=== PATIENT | female | born 1995 | race Two or more races ===

== ENCOUNTER 2016-10-26 16:20 | Emergency (ER) | payer OTHER ==
[2016-10-26 16:32] VITALS: BP 116/75; PULSE 70; TEMP 98.7; BMI 32.4
[2016-10-26 17:21] LABS: URINE APPEARANCE Clear; URINE BILIRUBIN Negative (NEGATIVE); URINE GLUCOSE (UA) Negative (NEGATIVE); URINE KETONE Negative (NEGATIVE); URINE LEUK ESTERASE Negative (NEGATIVE); URINE NITRITE Negative (NEGATIVE); URINE PROTEIN Negative (NEGATIVE); URINE UROBILINOGEN 0.2 E.U/dl (0.2-1.0)
--- NOTE | 2016-10-26 17:21 | PDOC ---
History of Present Illness - General History Source: Patient Exam Limitations: No Limitations - History of Present Illness Initial Comments: 10/26/16 17:22 The patient is a 21 year old female, with no significant past medical history, who presents today complaining of 10 days of intermittent right sided flank pain , nausea, and diarrhea. Approximately 3 or 4 days ago, the pain started to radiate from the right flank to the RLQ. She describes the pain as sharp, cramping, and occurs when taking a deep breath.She experienced 3 episodes of diarrhea since yesterday and multiple episodes of loose stool since the pain began. The patient was seen by her PCP yesterday for the pain and was told to come to the emergency room. The pain resolved and the patient decided to stay home until approximately 1 hour ago when the pain returned. She also reports frequent urination. Her LMP started on 10/24/16 and her last [employer] check up was on September 21. No fever, chills, nausea, vomiting. No dysuria, hematuria. No chest pain, SOB. No vaginal discharge. Allergies: none reported PCP- Dr. Annabel Sutherland <Judy Delgado - Last Filed: 10/26/16 18:29> <Rakesh Esparza - Last Filed: 10/26/16 19:15> - General Chief Complaint: Pain Stated Complaint: RLQ ABD PAIN, DIARRHEA, NAUSEA Time Seen by Provider: 10/26/16 16:30 Past History <Judy Delgado - Last Filed: 10/26/16 18:29> - Past Medical History Other medical history: DENIES - Reproductive History Is Patient Now?: No - Psycho/Social/Smoking Cessation Hx Anxiety: No Suicidal Ideation: No Smoking History: Never smoked Have you smoked in the past 12 months: No Information on smoking cessation initiated: No Hx Alcohol Use: No Drug/Substance Use Hx: No Substance Use Type: None <Rakesh Esparza - Last Filed: 10/26/16 19:15> - Past Medical History Allergies/Adverse Reactions: Allergies Allergy/AdvReac Type Severity Reaction Status Date / Time No Known Allergies Allergy Verified 11/29/15 23:16 Home Medications: Ambulatory Orders Norgestimate-Ethinyl Estradiol [Trinessa Lo Tablet] 1 each PO ASDIR 10/26/16 Review of Systems - Review of Systems Comments:: 10/26/16 17:22 CONSTITUTIONAL: Absent: Fever, Chills, Diaphoresis, Generalized Weakness, Malaise, Loss of Appetite HEENT: Absent: Rhinorrhea, Nasal Congestion, Throat Pain, Throat Swelling, Difficulty Swallowing, Mouth Swelling, Ear Pain, Eye Pain, Visual Changes CARDIOVASCULAR: Absent: Chest Pain, Syncope, Palpitations, Irregular Heart Rate, Lightheadedness , Peripheral Edema GASTROINTESTINAL: Present: RLQ pain, nausea, diarrhea. Absent: Abdominal Distension, Vomiting, Constipation, Melena, Hematochezia GENITOURINARY: Present: frequency, right sided flank pain. Absent: Dysuria, Urgency, Hesitancy, Genital Pain MUSCULOSKELETAL: Absent: Myalgia, Arthralgia, Joint Swelling, Back pain, Neck Pain SKIN: Absent: Rash, Itching, Pallor <Judy Delgado - Last Filed: 10/26/16 18:29> *Physical Exam - Vital Signs Last Vital Signs Temp Pulse Resp BP Pulse Ox 98.7 F 70 18 116/75 100 10/26/16 16:20 10/26/16 16:20 10/26/16 16:20 10/26/16 16:20 10/26/16 16:20 - Physical Exam Comments: 10/26/16 17:23 GENERAL: [The patient is awake, alert, and fully oriented, in no acute distress. ] HEAD: [Normal with no signs of trauma.] EYES: [Pupils equal, round and reactive to light, extraocular movements intact, sclera anicteric, conjunctiva clear.] LUNGS: [Breath sounds equal, clear to auscultation bilaterally. No wheezes, and no crackles.] ABDOMEN: [+mild RUQ tenderness with negative [place] sign. Mild focal RLQ tenderness. No guarding and No rebound. Normoactive bowel sounds. No masses.] BACK: [+mild right flank tenderness.] EXTREMITIES: [Normal range of motion, no edema. Sensation intact. Circulation intact.] NEUROLOGICAL: [Normal speech, normal gait.] PSYCH: [Normal mood, normal affect.] SKIN: [Warm, Dry, normal turgor, no rashes or lesions noted.] <Judy Delgado - Last Filed: 10/26/16 18:29> - Vital Signs Last Vital Signs Temp Pulse Resp BP Pulse Ox 98.7 F 70 18 116/75 100 10/26/16 16:20 10/26/16 16:20 10/26/16 16:20 10/26/16 16:20 10/26/16 16:20 <Rakesh Esparza - Last Filed: 10/26/16 19:15> ED Treatment Course - LABORATORY CBC & Chemistry Diagram: 10/26/16 17:15 10/26/16 17:15 - RADIOLOGY Radiograph Interpretation: 10/26/16 18:29 EXAM#: TYPE/EXAM: RESULT: [id number] US/ABDOMEN US -LIMITED RIGHT UPPER QUADRANT ABDOMEN ULTRASOUND Clinical information: right upper quadrant and flank pain The gallbladder appears mildly contracted probably on a physiologic basis. No definite gallbladder calculus is noted. Evaluation in this regard is mildly limited due to mild gallbladder contraction. No gallbladder wall edema or pericholecystic fluid is identified. The common bile duct diameter appears within normal limits measuring 0.4 cm. The liver and partially visualized pancreas and no sonographic abnormality. There is no right-sided hydronephrosis. A 3 mm echogenic focus is seen within the right kidney at the midpole level without associated distal acoustical shadowing. This focus could conceivably represent a nonobstructing calculus. No free intraperitoneal fluid is noted. IMPRESSION: The gallbladder is mildly contracted probably on a physiologic basis and less likely due to chronic cholecystitis. If clinically indicated correlate with follow-up outpatient sonography. No definite gallbladder calculus is identified allowing for the described mild gallbladder contraction. There is no definite biliary tract dilatation. An equivocal nonobstructing 3 mm right renal calculus is noted. Reported By: Sincere Barrios MD 10/26/16 1815 <Judy Delgado - Last Filed: 10/26/16 18:29> - LABORATORY CBC & Chemistry Diagram: 10/26/16 17:15 10/26/16 17:15 - RADIOLOGY Radiology Studies Ordered: Category Date Time Status ABDOMEN US [US] Stat Ultrasound 10/26/16 17:09 Ordered <Rakesh Esparza - Last Filed: 10/26/16 19:15> Medical Decision Making - Medical Decision Making 10/26/16 19:12 Patient is a 21-year-old female who presents complaining of intermittent right flank pain and right abdominal pain for 10 days. She saw her doctor yesterday and was advised to come to the ED, but the pain resolved so she went home. Today the pain came back again. There is no nausea or vomiting. There is no fever or chills. There is no vaginal discharge. There is no change in bowel movements. On examination, there is mild right flank tenderness, mild right upper quadrant and mild right lower quadrant tenderness. There is no guarding or rebound tenderness. Patient declined pain medication because the symptoms are too mild. Laboratory Results - last 24 hr 10/26/16 10/26/16 10/26/16 17:00 17:00 17:15 WBC 6.9 RBC 4.44 Hgb 13.2 Hct 38.6 MCV 87.1 MCHC 34.1 RDW 12.0 Plt Count 318 MPV 8.1 Neutrophils % 58.4 Lymphocytes % 29.8 Monocytes % 7.7 Eosinophils % 1.3 Basophils % 2.8 H Sodium Potassium Chloride Carbon Dioxide Anion Gap BUN Creatinine Creat Clearance w eGFR Random Glucose Calcium Total Bilirubin AST ALT Alkaline Phosphatase Total Protein Albumin Lipase Urine Color Yellow Urine Appearance Clear Urine pH 6.0 Ur Specific [place] 1.025 Urine Protein Negative Urine Glucose (UA) Negative Urine Ketones Negative Urine Blood 1+ H Urine Nitrite Negative Urine Bilirubin Negative Urine Urobilinogen 0.2 e.u/dl Ur Leukocyte Esterase Negative Urine HCG, Qual Negative 10/26/16 17:15 WBC RBC Hgb Hct MCV MCHC RDW Plt Count MPV Neutrophils % Lymphocytes % Monocytes % Eosinophils % Basophils % Sodium 134 L Potassium 3.9 Chloride 103 Carbon Dioxide 26 Anion Gap 5 L BUN 10 Creatinine 0.5 L Creat Clearance w eGFR > 60 Random Glucose 92 Calcium 9.0 Total Bilirubin 0.6 AST 14 ALT 10 Alkaline Phosphatase 59 Total Protein 6.8 Albumin 3.8 Lipase 36 Urine Color Urine Appearance Urine pH Ur Specific [place] Urine Protein Urine Glucose (UA) Urine Ketones Urine Blood Urine Nitrite Urine Bilirubin Urine Urobilinogen Ur Leukocyte Esterase Urine HCG, Qual Urinalysis is positive for blood, however, the patient had her period recently. The white blood cell count is normal. The ultrasound of the right upper quadrant shows no gallstones. There is a possible stone or calcification in the right kidney. Patient will have CT scan of the abdomen and pelvis to evaluate for renal colic. Appendicitis is highly unlikely given the intermittent nature of the pain, despite her right lower quadrant tenderness. Patient endorsed to Dr. Steve Levy at change of shift, with CT scan results pending. <Rakesh Esparza - Last Filed: 10/26/16 19:15> *DC/Admit/Observation/Transfer - Attestations Scribe Attestion: 10/26/16 17:23 Documentation prepared by OLI Ann, acting as medical laboratory specialist for Rakesh Esparza MD. <Judy Delgado - Last Filed: 10/26/16 18:29> <Rakesh Esparza - Last Filed: 10/26/16 19:15> Diagnosis at time of Disposition: Right flank pain - Discharge Dispostion Condition at time of disposition: Stable - Referrals Referrals: Annabel Sutherland [Primary Care Provider] -
[2016-10-26 17:24] LABS: URINE COLOR YELLOW
[2016-10-26 17:36] LABS: BASOPHIL 2.8 % (0-2.0); EOSINOPHIL 1.3 % (0-4.5); MCH 29.7 pg (25.7-33.7); MCHC 34.1 g/dl (32.0-36.0); MEAN CELL VOLUME 87.1 fl (80-96); MEAN PLT VOLUME 8.1 fl (7.5-11.1); NEUTROPHILS 58.4 % (42.8-82.8); PLATELET COUNT 318 K/MM3 (134-434); WHITE BLOOD COUNT 6.9 K/mm3 (4.0-10.0)
[2016-10-26 17:43] LABS: ALBUMIN 3.8 g/dl (3.5-5.0); ALK PHOS 59 U/L (32-92); ANION GAP 5 (8-16); BILIRUBIN,TOTAL 0.6 mg/dl (0.2-1.0); CO2 26 mmol/L (22-28); CREATININE 0.5 mg/dl (0.6-1.3); GLUCOSE,RANDOM 92 mg/dl (74-106); SGOT/AST 14 U/L (10-42); SGPT/ALT 10 U/L (10-40); TOT PROT 6.8 g/dl (6.4-8.3)
[2016-10-26 18:24] LABS: URINE BLOOD 1+ (NEGATIVE)
--- NOTE | 2016-10-26 19:28 | PDOC ---
*Physical Exam - Vital Signs Last Vital Signs Temp Pulse Resp BP Pulse Ox 98.7 F 70 18 116/75 100 10/26/16 16:20 10/26/16 16:20 10/26/16 16:20 10/26/16 16:20 10/26/16 16:20 <Judy Delgado - Last Filed: 10/26/16 20:12> - Vital Signs Last Vital Signs Temp Pulse Resp BP Pulse Ox 98.7 F 70 18 116/75 100 10/26/16 16:20 10/26/16 16:20 10/26/16 16:20 10/26/16 16:20 10/26/16 16:20 <Steve Levy - Last Filed: 10/29/16 09:21> ED Treatment Course - LABORATORY CBC & Chemistry Diagram: 10/26/16 17:15 10/26/16 17:15 - ADDITIONAL ORDERS Additional order review: Laboratory Results 10/26/16 10/26/16 10/26/16 17:15 17:00 17:00 Sodium 134 L Potassium 3.9 Chloride 103 Carbon Dioxide 26 Anion Gap 5 L BUN 10 Creatinine 0.5 L Creat Clearance w eGFR > 60 Random Glucose 92 Calcium 9.0 Total Bilirubin 0.6 AST 14 ALT 10 Alkaline Phosphatase 59 Total Protein 6.8 Albumin 3.8 Lipase 36 Urine Color Yellow Urine Appearance Clear Urine pH 6.0 Ur Specific [place] 1.025 Urine Protein Negative Urine Glucose (UA) Negative Urine Ketones Negative Urine Blood 1+ H Urine Nitrite Negative Urine Bilirubin Negative Urine Urobilinogen 0.2 e.u/dl Ur Leukocyte Esterase Negative Urine HCG, Qual Negative 10/26/16 17:15 RBC 4.44 MCV 87.1 MCHC 34.1 RDW 12.0 MPV 8.1 Neutrophils % 58.4 Lymphocytes % 29.8 Monocytes % 7.7 Eosinophils % 1.3 Basophils % 2.8 H - RADIOLOGY Radiograph Interpretation: 10/26/16 20:12 EXAM#: TYPE/EXAM: RESULT: [id number] CT/ABDOMEN PELVIS CT W/O CONTRAST Abdomen and pelvis CT without contrast Clinical information: right flank pain, hematuria Multiplanar imaging was performed. As requested no intravenous or enteric contrast was administered. No urinary tract calculus or hydroureteronephrosis is noted. The urinary bladder demonstrates no intrinsic or extrinsic CT pathology. A 3 mm right renal echogenic focus noted on recently performed sonography demonstrates no CT correlate. No gross urinary tract mass lesion is identified. The kidneys, adrenal glands, liver, spleen, pancreas demonstrate no discrete noncontrast abnormality. As on recently performed sonography the gallbladder demonstrates a partially contracted appearance which is probably on a physiologic basis. If clinically indicated correlate with follow-up outpatient sonography. No obvious radiopaque gallbladder calculus is noted. There is no definite biliary tract dilatation. The partially visualized appendix appears unremarkable. No indirect CT signs of acute appendicitis are identified. There is no evidence of pneumoperitoneum, free intraperitoneal fluid or bowel obstruction. No aortic aneurysm is noted. There is no discrete lymphadenopathy. The pelvis demonstrates no definite abnormality. No flank hernia is seen. The visualized osseous structures demonstrate no obvious CT evidence of acute pathology. IMPRESSION: No evidence of urolithiasis or obstructive uropathy. There is no definite CT evidence of acute pathology. Reported By: Sincere Barrios MD 10/26/162008 <Judy Delgado - Last Filed: 10/26/16 20:12> - LABORATORY CBC & Chemistry Diagram: 10/26/16 17:15 10/26/16 17:15 - ADDITIONAL ORDERS Additional order review: Laboratory Results 10/26/16 10/26/16 10/26/16 17:15 17:00 17:00 Sodium 134 L Potassium 3.9 Chloride 103 Carbon Dioxide 26 Anion Gap 5 L BUN 10 Creatinine 0.5 L Creat Clearance w eGFR > 60 Random Glucose 92 Calcium 9.0 Total Bilirubin 0.6 AST 14 ALT 10 Alkaline Phosphatase 59 Total Protein 6.8 Albumin 3.8 Lipase 36 Urine Color Yellow Urine Appearance Clear Urine pH 6.0 Ur Specific [place] 1.025 Urine Protein Negative Urine Glucose (UA) Negative Urine Ketones Negative Urine Blood 1+ H Urine Nitrite Negative Urine Bilirubin Negative Urine Urobilinogen 0.2 e.u/dl Ur Leukocyte Esterase Negative Urine HCG, Qual Negative 10/26/16 17:15 RBC 4.44 MCV 87.1 MCHC 34.1 RDW 12.0 MPV 8.1 Neutrophils % 58.4 Lymphocytes % 29.8 Monocytes % 7.7 Eosinophils % 1.3 Basophils % 2.8 H <Steve Levy - Last Filed: 10/29/16 09:21> Medical Decision Making - Medical Decision Making 10/26/16 19:26 Patient signed out to me from Dr. Esparza at approximately 7:00pm. Donnie is a 21y F presenting with intermittent R flank/ruq/rlq pain for the past several weeks. Pts workup thus far includes negative blood work, RUQ US showing a contracted GB and possible kidney stone - awaiting CT results. will reassess and dispo. 10/26/16 20:15 The patient is currently pain free. abdomen is soft/nontender. States that hre pain lasts for seconds at a time, but hasnt recurred here. Pts CT is negative for acute pathology, and no stone present. ?MSK cause? will refer the patient back to [facility] with her PMD for further evaluation. A copy of the pts labs/US/CT were provided so she may review with her doctor. return precautions were discussed I discussed the physical exam findings, ancillary test results and final diagnoses with the patient. I answered all of the patient's questions. The patient was satisfied with the care received and felt comfortable with the discharge plan and treatment plan. The patient will call their primary care physician within 24 hours to arrange follow-up and will return to the Emergency Department with any new, persistent or worsening symptoms. <Steve Levy - Last Filed: 10/29/16 09:21> *DC/Admit/Observation/Transfer <Judy Delgado - Last Filed: 10/26/16 20:12> - Discharge Dispostion Admit: No <Steve Levy - Last Filed: 10/29/16 09:21> Diagnosis at time of Disposition: Right flank pain - Discharge Dispostion Disposition: HOME Condition at time of disposition: Stable - Referrals Referrals: Annabel Sutherland [Primary Care Provider] - - Patient Instructions Printed Discharge Instructions: DI for Abdominal Pain-Adult Additional Instructions: Return to the emergency department immediately with ANY new, persistent or worsening symptoms including worsening abdominal pain, fevers, inability to tolerate oral intake, chest pain, shortness of breath or any other concerns. Stay well hydrated. A copy of your blood work and imaging results were provided, please review them with your doctor. You MUST call and follow up with your doctor within 3-5 days for reevaluation. Please make sure your doctor reviews the results of your emergency evaluation. - Post Discharge Activity
== END 2016-10-26 20:21 | disposition home or self-care (01) ==
LOC: FER 16:20
DX: R10.31 Right lower quadrant pain (principal)
CPT/HCPCS: 36415; 74176-TC; 76705-TC; 80053; 81003; 83690; 84703; 85025; 99284-25

== ENCOUNTER 2016-12-20 21:15 | Emergency (ER) | payer OTHER ==
--- NOTE | 2016-12-20 21:19 | PDOC ---
History of Present Illness - General History Source: Patient Exam Limitations: No Limitations - History of Present Illness Initial Comments: 12/20/16 21:48 The patient is a 21 year old female with no PMHx who presents to the ED to get tested for gonorrhea. The patient reports her noticed penile discharge a few days ago. He went to the ED and was told he had gonorrhea. She reports an irregular period this month. She states her period normally lasts 5-7 days. She states that this month her period was 3 days late and only lasted 3 days, which is unusual. She reports no symptoms. She denies vaginal discharge, itching or burning. She denies fever, chills, joint swelling, rash. She denies any prior pregnancies. She denies allergies. <Natalie Geronimo - Last Filed: 12/20/16 21:47> <Ladan Fisher - Last Filed: 12/21/16 03:15> - General Chief Complaint: Vaginal Sxs Stated Complaint: EXPOSED TO GONORRHEA Time Seen by Provider: 12/20/16 21:19 Past History <Natalie Geronimo - Last Filed: 12/20/16 21:47> - Psycho/Social/Smoking Cessation Hx Anxiety: No Suicidal Ideation: No Smoking History: Never smoked Have you smoked in the past 12 months: No Hx Alcohol Use: No Drug/Substance Use Hx: No Substance Use Type: None <Ladan Fisher - Last Filed: 12/21/16 03:15> - Past Medical History Allergies/Adverse Reactions: Allergies Allergy/AdvReac Type Severity Reaction Status Date / Time No Known Allergies Allergy Verified 11/29/15 23:16 Home Medications: Ambulatory Orders Norgestimate-Ethinyl Estradiol [Trinessa Lo Tablet] 1 each PO ASDIR 10/26/16 *Physical Exam - Vital Signs Last Vital Signs Temp Pulse Resp BP Pulse Ox 98.2 F 89 16 143/90 98 12/20/16 21:28 12/20/16 21:28 12/20/16 21:28 12/20/16 21:28 12/20/16 21:28 <Natalie Geronimo - Last Filed: 12/20/16 21:47> - Physical Exam Comments: GENERAL: Young adult female, alert and oriented 3, no acute distress HEAD: Normal with no signs of trauma. EYES: PERRLA, EOMI, sclera anicteric, conjunctiva clear. ENT: Right ear normal; left external auditory canal mildly inflamed with normal TM, nares patent, oropharynx clear without exudates. Moist mucous membranes. NECK: Normal range of motion, supple without lymphadenopathy, JVD, or masses. LUNGS: Breath sounds equal, clear to auscultation bilaterally. No wheezes, and no crackles. HEART:Regular rate and rhythm, normal S1 and S2 without murmur, rub or gallop. ABDOMEN:.normal bowel sounds No guarding,tenderness or rebound.No masses No distention. Pelvic exam: Normal female genitalia without lesions Moderate amount of thick yellowish discharge on vaginal wall Cervix somewhat friable but no cervical motion tenderness present; no adnexal masses or tenderness EXTREMITIES: Normal range of motion, no edema. No clubbing or cyanosis. No erythema, or tenderness. NEUROLOGICAL: Cranial nerves II through XII grossly intact. Normal speech. No focal neurologic deficit. MUSCULOSKELETAL: Back non-tender to palpation, no CVA tenderness SKIN: Warm, Dry, normal turgor, no rashes or lesions noted. <Ladan Fisher - Last Filed: 12/21/16 03:15> Progress Note - Progress Note Progress Note: Documentation has been prepared under my direction and personally reviewed by me in its entirety. I attest that this documented accurately reflects all work, treatment, procedures and medical decision making performed by me. <Ladan Fisher - Last Filed: 12/21/16 03:15> Medical Decision Making - Medical Decision Making As noted above, this 21-year-old woman nulliparous and without significant past medical history presents with exposure to gonorrhea: Patient states that her was recently diagnosed as having gonorrhea after having dysuria/penile discharge. The patient has no symptoms and no known history of sexually transmitted diseases. There has been no recent travel (either she or her ). The patient has had sexual contact (including intercourse) with her within the last 2 weeks. Patient was scheduled to see her insulation worker interior surface today but her doctor needed to cancel the appointment. Physical exam as noted. PGU negative/UA unremarkable Chlamydia/GC culture sent via cervical swab. Patient states that she would like to treat empirically for gonorrhea. It is explained to the patient that we will also treat Chlamydia infection . The patient states that she believes her received a shot and oral medication for treatment of his infection and understands the importance of treating for both infections area Ceftriaxone 250 mg IM/azithromycin 1 g by mouth administered to the patient. Patient will follow-up with her insulation worker interior surface (who is also her general doctor) within the next 4-5 days. She should return here or see her insulation worker interior surface sooner if she develops fevers/vaginal discharge/rash/joint swelling. <Ladan Fisher - Last Filed: 12/21/16 03:15> *DC/Admit/Observation/Transfer - Attestations Scribe Attestion: 12/20/16 21:48 Documentation prepared by Natalie Geronimo, acting as paramedical aide for Ladan Fisher MD. <Natalie Geronimo - Last Filed: 12/20/16 21:47> <Ladan Fisher - Last Filed: 12/21/16 03:15> Diagnosis at time of Disposition: Exposure to gonorrhea - Discharge Dispostion Disposition: HOME Condition at time of disposition: Stable - Referrals Referrals: Annabel Sutherland [Primary Care Provider] - - Patient Instructions Printed Discharge Instructions: Gonorrhea Additional Instructions: followup with your insulation worker interior surface within the next 4-5 days return to ER if you develop fever/chills, abdominal pain/vomiting
[2016-12-20 21:31] VITALS: BP 143/90; PULSE 89; TEMP 98.2; BMI 26.5
[2016-12-20 21:54] LABS: PH,URINE 8.5 (4.5-8); URINE APPEARANCE Clear; URINE BILIRUBIN Negative (NEGATIVE); URINE BLOOD Negative (NEGATIVE); URINE GLUCOSE (UA) Negative (NEGATIVE); URINE KETONE Negative (NEGATIVE); URINE LEUK ESTERASE Negative (NEGATIVE); URINE NITRITE Negative (NEGATIVE); URINE PROTEIN Negative (NEGATIVE); URINE UROBILINOGEN 0.2 E.U/dl (0.2-1.0)
[2016-12-20 21:56] LABS: URINE COLOR YELLOW
[2016-12-20] MEDS ORDERED: AZITHROMYCIN 1 GM PACKET PO ONE (22:19)
[2016-12-20] MEDS ORDERED: AZITHROMYCIN 250 MG TABLET (FP) ONE (22:22)
--- NOTE | 2016-12-26 13:18 | PDOC ---
Patient Follow-up (Call Back) - Post ED Follow - Up Condition at time of discharge: Stable Disposition at time of original discharge: HOME - Disposition Additional Instructions/Notes: Contacted by phone at 1:15 PM, phone number [phone]. Spoke with the patient , and informed her of positive test for gonorrhea. Instructed regarding sexual contacts and follow up with [employer] physician. She seemed to understand and agree. She was treated on her initial visit with Rocephin and doxycycline, so this should be adequate.
== END 2016-12-20 22:41 | disposition home or self-care (01) ==
LOC: FER 21:15
DX: Z11.3 Encounter for screening for infections with a predominantly sexual mode of transmission (principal)
CPT/HCPCS: 36415; 81003; 84703; 87491; 87591; 99281-25

== ENCOUNTER 2023-06-12 17:35 | Emergency (ER) | payer OTHER ==
[2023-06-12 17:48] VITALS: RESP 16; BMI 35.1
[2023-06-12] MEDS ORDERED: ACETAMINOPHEN 1000 MG/100 ML BAG IVPB ONE (17:56)
[2023-06-12] MEDS ORDERED: SODIUM CHLORIDE 0.9% 500 ML INFUS.BAG IV ONE (17:56)
[2023-06-12] MEDS ORDERED: ONDANSETRON 4 MG/2 ML VIAL IVPUSH ONE (17:56)
[2023-06-12] MEDS ORDERED: ONDANSETRON 4 MG/2 ML VIAL ONE (18:00)
[2023-06-12] MEDS ORDERED: ACETAMINOPHEN INJECTION 100 ML IVPB ONE (18:00)
[2023-06-12 18:41] LABS: HEMATOCRIT 43.5 % (32.4-45.2); HEMOGLOBIN 15.2 G/dL (10.7-15.3); MCHC 34.9 g/dl (32.0-36.0); MEAN PLT VOLUME 7.6 fl (7.5-11.1); PLATELET COUNT 153.4 10^3/uL (134-434); RBC 4.89 10^6/uL (3.60-5.2); RDW 13.4 % (11.6-15.6); WHITE BLOOD COUNT 5.1 10^3/uL (4.0-10.8)
[2023-06-12 18:44] LABS: EPITHELIAL CELLS MODERATE /hpf
[2023-06-12] MEDS ORDERED: FAMOTIDINE 20 MG/50 ML IVPB 20 MG/50 ML MG IVPB ONE ×2 (18:44→19:02)
[2023-06-12] MEDS ORDERED: SODIUM CHLORIDE 1,000 ML IV ONE (19:31)
[2023-06-12 19:35] LABS: POTASSIUM 3.7 mmol/L (3.5-5.1)
[2023-06-12 19:37] LABS: CALCIUM 8.3 mg/dL (8.5-10.1)
[2023-06-12 19:38] LABS: ALBUMIN 3.6 g/dl (3.4-5.0); BLOOD UREA NITROGEN 12.3 mg/dL (7-18); MAGNESIUM 1.6 mg/dL (1.8-2.4)
[2023-06-12 19:41] LABS: CREATININE 0.7 mg/dL (0.55-1.3)
[2023-06-12 19:43] LABS: BILIRUBIN,TOTAL 0.7 mg/dL (0.2-1); TOT PROT 7.2 g/dl (6.4-8.2)
[2023-06-12 19:52] LABS: PLATELET ESTIMATE ADEQUATE
[2023-06-12 20:18] VITALS: BP 90/58; PULSE 93; TEMP 99.8
== END 2023-06-12 21:54 | disposition home or self-care (01) ==
LOC: FER 17:35
PROC: 3E033NZ Introduction of Analgesics, Hypnotics, Sedatives into Peripheral Vein, Percutaneous Approach (ICD-10-PCS; principal; 2023-06-12)
PROC: 3E033NZ Introduction of Analgesics, Hypnotics, Sedatives into Peripheral Vein, Percutaneous Approach (ICD-10-PCS; 2023-06-12)
PROC: 3E033GC Introduction of Other Therapeutic Substance into Peripheral Vein, Percutaneous Approach (ICD-10-PCS; 2023-06-12)
PROC: 3E0337Z Introduction of Electrolytic and Water Balance Substance into Peripheral Vein, Percutaneous Approach (ICD-10-PCS; 2023-06-12)
DX: R10.13 Epigastric pain (principal); R11.10 Vomiting, unspecified; R19.7 Diarrhea, unspecified; R50.9 Fever, unspecified; K52.9 Noninfective gastroenteritis and colitis, unspecified; Z20.822 Contact with and (suspected) exposure to COVID-19
CPT/HCPCS: 0241U-QW; 36415; 74177-TC; 80053; 81003; 81015; 83690; 83735; 84484; 84703; 85025; 87086; 93005; 99285-25; Q9967